=== PATIENT | female | born 1980 | race Caucasian/White ===

== ENCOUNTER 2016-10-15 22:15 | Emergency (ER) | payer MEDICARE, MEDICAID ==
[~2016-10-15] VITALS: Ht 152.4 cm; Wt 61.2 kg
[~2016-10-15 22:15] MED LIST: BENADRYL25 MG ORAL; CIPROFLOXACIN500 M2 ORAL; PLAQUENIL200 MG ORAL; PREDNISONE20 MG ORAL; PREDNISONE5 MG ORAL; RANITIDINE HCL150 MG ORAL; [UNRECOGNIZED DRUG - OTHER]
[2016-10-15] MEDS ORDERED: ZOLOFT25 MG ORAL (22:30)
[2016-10-15] MEDS ORDERED: Morphine Sulfate 4mg/ml Inj IVP ONE (23:00)
[2016-10-15 23:19] VITALS: BP 104/67
[2016-10-15 23:20] LABS: APPEARANCE,URINE CLEAR; KETONES,URINE NEGATIVE (NEGATIVE); LEUKOCYTE ESTERASE ,URINE NEGATIVE (NEGATIVE); NITRITE,URINE NEGATIVE (NEGATIVE); PH,URINE 6 (4.5-8.0); UROBILINOGEN,URINE NORMAL MG/DL (0.0-1.0)
[2016-10-15 23:25] LABS: BASOPHILS % (AUTO) 1.6 % (0.0-2.0); EOSINOPHILS % (AUTO) 1.8 % (0.0-3.0); LYMPHOCYTES % (AUTO) 31.1 % (20.0-45.0); MEAN CORPUSCULAR HEMOGLOBIN 31.1 PG (27.0-31.0); MEAN CORPUSCULAR VOLUME 92 FL (80-99); MEAN PLATELET VOLUME 6.8 FL (6.5-10.1); MONOCYTES % (AUTO) 8.6 % (1.0-10.0); NEUTROPHILS % (AUTO) 56.9 % (45.0-75.0); PLATELET COUNT 222 K/UL (150-450); RED BLOOD COUNT 4.72 M/UL (4.20-5.40); RED CELL DISTRIBUTION WIDTH 11.3 % (11.6-14.8); WHITE BLOOD COUNT 7.6 K/UL (4.8-10.8)
[2016-10-15 23:37] LABS: ALANINE AMINOTRANSFERASE 8 U/L (3-33); ALBUMIN/GLOBULIN RATIO 1.5 (1.0-2.7); ANION GAP 15 (5-15); ASPARTATE AMINO TRANSFERASE 16 U/L (5-40); CALCIUM 9.3 mg/dL (8.6-10.2); CARBON DIOXIDE 25 mEQ/L (20-30); CHLORIDE 97 mEQ/L (98-107); CREATININE 0.7 mg/dL (0.5-0.9); GLOMERULAR FILTRATION RATE > 60 mL/min (>60); HEMOLYSIS 5; LIPASE 35 U/L (< 60); POTASSIUM 3.9 mEQ/L (3.4-4.9); SODIUM 137 mEQ/L (135-145); TOTAL PROTEIN 7.5 g/dL (6.6-8.7)
[2016-10-15 23:48] LABS: PROTEIN,URINE NEGATIVE (NEGATIVE)
[2016-10-15 23:49] LABS: PROTHROMBIN TIME 10.2 SEC (9.30-11.50)
[2016-10-16 01:13] VITALS: BP 98/63
[2016-10-16] MEDS ORDERED: HYDROCODON-ACE1 EA15 ORAL (01:13)
--- NOTE | 2016-10-16 01:14 | Emergency Room Report ---
History of Present Illness General Chief Complaint: Abdominal Pain Source: Patient Present Illness HPI This is a 36-year-old female with a history of ovarian cyst. Her digital traffic coordinator thinks that she may have endometriosis. Patient presents with right lower quadrant/right pelvic pain for the last 3 days. Pain is sharp. Similar to previous episode. Pain is 8/10. [id number] medicine not helping. No fever or chills but no nausea no vomiting. No diarrhea. Denies any other complaint. Allergies: Coded Allergies: AMOXICILLIN TRIHYDRATE (Verified Allergy, Severe, rash, 05/12/13) ASPIRIN (Verified Allergy, Unknown, 10/15/16) PENICILLINS (Verified Allergy, Unknown, 10/15/16) Patient History Past Medical History: see triage record, old chart reviewed Past Surgical History: none Pertinent Family History: none Social History: Denies: smoking Last Menstrual Period: Oct 01 Now: No : 3 Para: 1 Immunizations: other Reviewed Nursing Documentation: PMH: Agreed, PSxH: Agreed Nursing Documentation-PMH Hx Cardiac Problems: Yes - Pericarditis Hx Hypertension: No - LUPUS Hx Asthma: Yes Hx Cancer: No Hx Gastrointestinal Problems: No Hx Cerebral Palsy: Yes - bells palsy Hx Peripheral Neuropathy: Yes Hx Weakness: Yes Hx Fatigue: Yes Hx Neurologic Surgery: No Hx Brain Shunt: No Review of Systems Eye: Denies: blurred vision, eye pain ENT: Denies: ear pain, nose congestion, throat swelling Respiratory: Denies: cough, shortness of breath Cardiovascular: Denies: chest pain, palpitations Gastrointestinal: Reports: abdominal pain, Denies: diarrhea, nausea, vomiting Musculoskeletal: Denies: back pain, joint pain Skin: Denies: rash Neurological: Denies: headache, numbness Endocrine: Denies: increased thirst, increased urine Hematologic/Lymphatic: Denies: easy bruising All Other Systems: negative except mentioned in HPI Physical Exam Vital Signs Date Time Temp Pulse Resp B/P Pulse Ox O2 Delivery O2 Flow Rate FiO2 10/15/16 22:24 98.1 80 18 120/75 99 Room Air vitals normal Sp02 EP Interpretation: reviewed, normal General Appearance: well appearing, no apparent distress, alert Head: normocephalic, atraumatic Eyes: bilateral eye EOMI, bilateral eye PERRL ENT: hearing grossly normal, normal pharynx Neck: full range of motion, supple, no meningismus Respiratory: chest non-tender, lungs clear, normal breath sounds Cardiovascular #1: regular rate, rhythm, no murmur Gastrointestinal: normal bowel sounds, no mass, no organomegaly, no bruit, non- distended, tenderness - Right lower quadrant Musculoskeletal: back normal, gait/station normal, normal range of motion Neurologic: alert, oriented x3 Psychiatric: mood/affect normal Skin: warm/dry Medical Decision Making Diagnostic Impression: Primary Impression: Ovarian cyst Qualified Codes: N83.201 - Unspecified ovarian cyst, right side Additional Impression: Abdominal pain Qualified Codes: R10.31 - Right lower quadrant pain ER Course Patient present with abdominal pain. This is probably secondary to ovarian cyst. Pain is well-controlled now. No evidence of appendicitis or torsion. We 'll discharge home. Lab Results Impression labs normal CT/MRI/US Diagnostic Results CT/MRI/US Diagnostic Results : Imaging Test Ordered: CT abdomen and pelvis Impression Read by radiologist. Appendix is upper limit of normal. No inflammatory changes. Right ovarian cyst. Last Vital Signs Date Time Temp Pulse Resp B/P Pulse Ox O2 Delivery O2 Flow Rate FiO2 10/15/16 23:37 98.1 10/15/16 23:19 74 12 104/67 100 Room Air Status: improved Disposition: HOME, SELF-CARE Condition: Stable Scripts Hydrocodone/Acetaminophen 5-325* (HYDROCODONE/ACETAMINOPHEN 5-325*) 1 Each Tablet 1 TAB ORAL Q6H Y for For Pain, #30 TAB 0 Refills Prov: ENMANUEL SAHNI M.D. 10/16/16 Referrals: NON PHYSICIAN (PCP) Patient Instructions: Abdominal Pain, Adult Additional Instructions: Followup with your DrMallorie in 2-3 days. Return if worse. ENMANUEL SAHNI M.D. Oct 16, 2016 01:14
[2016-10-16 01:18] VITALS: BP 98/63
--- NOTE | 2016-10-16 09:56 | Diagnostic Imaging Report ---
Indications: Abdominal pain Technique: Continuous helical CT imaging of the abdomen and pelvis was performed with automatic exposure control following administration of nonionic IV contrast only, on a Siemens sensation [address] scanner. Axial, coronal, sagittal images were reconstructed at 5 mm slice thickness. No oral contrast was administered per requesting physician's order, despite no contraindications listed in either submitted clinical data or tech note.. CTDI volume(s): 15 mGy Total DLP: 741 mGy-cm Findings: Comparison: 12/28/2015 Again, lack of oral contrast limits evaluation of gastrointestinal tract, nondilated throughout. Appendix unremarkable. No obvious mural thickening, adjacent stranding, extraluminal gas or fluid collections identified, aside from small amount of free fluid in the dependent portion of the pelvis. 2 adjacent cystic structures currently demonstrated within right adnexal region, 2 and 1.5 cm, respectively.. Liver, gallbladder, pancreas, spleen, adrenal glands, kidneys, unopacified ureters and urinary bladder, uterus, left adnexal region, vascular structures, retroperitoneum, mesentery, remainder visualized abdominopelvic anatomy unremarkable. Irregular pleural-based linear densities again noted in both lung bases. No focal skeletal abnormality identified. IMPRESSION: Small amount pelvic free fluid, nonspecific, may be secondary to recent ovarian cyst rupture, 2 of which are currently demonstrated in the right adnexal region. No other evidence of acute abdominopelvic disease, with limitation as described. Subtle but potentially significant abnormalities the gastrointestinal tract may be missed. Repeat CT scan with full oral and IV contrast preparation recommended for more complete evaluation, as clinically indicated Stable pulmonary bibasal subsegmental atelectasis versus scarring This correlates with [facility] preliminary report.
== END 2016-10-16 01:19 | disposition home or self-care (01) ==
LOC: EMR 22:52
DX: N83.201 Unspecified ovarian cyst, right side (principal); G51.0 Bell's palsy; M32.9 Systemic lupus erythematosus, unspecified; J45.909 Unspecified asthma, uncomplicated; G62.9 Polyneuropathy, unspecified; Z88.1 Allergy status to other antibiotic agents; Z88.6 Allergy status to analgesic agent; Z88.0 Allergy status to penicillin
CPT/HCPCS: 36415; 74177; 80053; 81003; 81025; 83690; 85025; 85610; 85730; 96360; 96361; 96374; 96375; 99284; J2270; J2405; Q9967

== ENCOUNTER 2017-04-23 11:31 | Emergency (ER) | payer MEDICARE, MEDICAID ==
[~2017-04-23] VITALS: Ht 162.6 cm; Wt 55.3 kg
[~2017-04-23 11:31] MED LIST changes: +HYDROCODON-ACE1 EA15 ORAL; +ZOLOFT25 MG ORAL
[2017-04-23 12:02] VITALS: BP 109/74
--- NOTE | 2017-04-23 12:26 | Emergency Room Report ---
History of Present Illness General Chief Complaint: Abdominal Pain Source: Patient (Chilo Germain) Present Illness HPI Patient is a 36-year-old female who presented after increased abdominal pain. The patient gradual onset of symptoms. Patient had acute increase in right lower quadrant pain. Patient had also noticed some mouth sores. Patient had prior history of lupus. Patient had been taking Plaquenil as well as prednisone. The patient noticed severe pain which did not radiate. She had been not having any diarrhea or bloody stools. Patient reported having some irregular periods (Chilo Germain) Allergies: Coded Allergies: AMOXICILLIN TRIHYDRATE (Verified Allergy, Severe, rash, 05/12/13) ASPIRIN (Verified Allergy, Unknown, 10/15/16) PENICILLINS (Verified Allergy, Unknown, 10/15/16) Patient History Past Medical History: see triage record Now: No Reviewed Nursing Documentation: PMH: Agreed, PSxH: Agreed (Chilo Germain) Nursing Documentation-PMH Hx Cardiac Problems: Yes - Pericarditis Hx Hypertension: No - LUPUS Hx Asthma: Yes Hx Cancer: No Hx Gastrointestinal Problems: No Hx Cerebral Palsy: Yes - bells palsy Hx Peripheral Neuropathy: Yes Hx Weakness: Yes Hx Fatigue: Yes Hx Neurologic Surgery: No Hx Brain Shunt: No (Chilo Germain) Review of Systems All Other Systems: negative except mentioned in HPI (Chilo Germain) Physical Exam Vital Signs Date Time Temp Pulse Resp B/P Pulse Ox O2 Delivery O2 Flow Rate FiO2 04/23/17 11:52 98.1 78 16 109/74 98 Room Air Sp02 EP Interpretation: reviewed, normal General Appearance: normal inspection, well appearing, no apparent distress, alert, GCS 15, non-toxic Head: atraumatic ENT: normal ENT inspection, hearing grossly normal, normal voice Neck: normal inspection, full range of motion, supple, no bony tend Respiratory: normal inspection, lungs clear, normal breath sounds, no respiratory distress, no retraction, no wheezing Cardiovascular #1: regular rate, rhythm, no edema Gastrointestinal: normal inspection, normal bowel sounds, non tender, soft, no guarding, no hernia Genitourinary: no CVA tenderness Musculoskeletal: normal inspection, back normal, normal range of motion Neurologic: normal inspection, alert, oriented x3, responsive, carpet weaver III-XII nml as tested, speech normal Psychiatric: normal inspection, judgement/insight normal, mood/affect normal Skin: normal inspection, normal color, no rash (Chilo Germain) Medical Decision Making Diagnostic Impression: Primary Impression: Hemorrhagic cyst Additional Impression: Abdominal pain ER Course Patient presented for abdominal pain. Differential diagnoses included ischemic bowel, appendicitis, perforated viscus, abdominal aortic aneurysm, inferior myocardial infarction, viral gastroenteritis Because of complexity of patient's case laboratory testing and imaging studies were ordered.Patient was given IV fluids. CT of abdomen and pelvis was ordered with contrast due to patient's pain.The patient was noted to have some oral lesions consistent with some possible enteritis. Patient will likely need a GI followup for further evaluation and colonoscopy. Lab for studies were unremarkable. Patient was given IV morphine as well as Zofran. Patient was endorsed to Dr. Wilkins pending CT imaging. Labs Test 04/23/17 12:18 04/23/17 12:30 Urine Color Yellow Urine Appearance Slightly cloudy Urine pH 6 (4.5-8.0) Urine Specific [place] 1.020 (1.005-1.035) Urine Protein Negative (NEGATIVE) Urine Glucose (UA) Negative (NEGATIVE) Urine Ketones Negative (NEGATIVE) Urine Occult Blood Negative (NEGATIVE) Urine Nitrite Negative (NEGATIVE) Urine Bilirubin Negative (NEGATIVE) Urine Urobilinogen Normal MG/DL (0.0-1.0) Urine Leukocyte Esterase 1+ (NEGATIVE) Urine RBC 0-2 /HPF (0 - 2) Urine WBC 2-4 /HPF (0 - 2) Urine Squamous Epithelial Cells Moderate /LPF (NONE/OCC) Urine Bacteria Few /HPF (NONE) Urine HCG, Qualitative Negative White Blood Count 4.6 K/UL (4.8-10.8) Red Blood Count 4.39 M/UL (4.20-5.40) Hemoglobin 13.5 G/DL (12.0-16.0) Hematocrit 40.2 % (37.0-47.0) Mean Corpuscular Volume 92 FL (80-99) Mean Corpuscular Hemoglobin 30.7 PG (27.0-31.0) Mean Corpuscular Hemoglobin Concent 33.5 G/DL (32.0-36.0) Red Cell Distribution Width 11.4 % (11.6-14.8) Platelet Count 230 K/UL (150-450) Mean Platelet Volume 6.8 FL (6.5-10.1) Neutrophils (%) (Auto) 53.5 % (45.0-75.0) Lymphocytes (%) (Auto) 31.4 % (20.0-45.0) Monocytes (%) (Auto) 11.5 % (1.0-10.0) Eosinophils (%) (Auto) 2.6 % (0.0-3.0) Basophils (%) (Auto) 1.0 % (0.0-2.0) Prothrombin Time 10.0 SEC (9.30-11.50) Prothromb Time International Ratio 1.0 (0.9-1.1) Activated Partial Thromboplast Time 24 SEC (23-33) Sodium Level 140 mEQ/L (135-145) Potassium Level 4.1 mEQ/L (3.4-4.9) Chloride Level 103 mEQ/L (98-107) Carbon Dioxide Level 28 mEQ/L (20-30) Anion Gap 9 (5-15) Blood Urea Nitrogen 8 mg/dL (7-23) Creatinine 0.6 mg/dL (0.5-0.9) Estimat Glomerular Filtration Rate > 60 mL/min (>60) Glucose Level 86 mg/dL (74-106) Calcium Level 9.2 mg/dL (8.6-10.2) Total Bilirubin 0.3 mg/dL (0.0-1.2) Aspartate Amino Transf (AST/SGOT) 17 U/L (5-40) Alanine Aminotransferase (ALT/SGPT) 10 U/L (3-33) Alkaline Phosphatase 91 U/L (35-104) Total Protein 7.0 g/dL (6.6-8.7) Albumin 4.2 g/dL (3.5-5.2) Globulin 2.8 g/dL Albumin/Globulin Ratio 1.5 (1.0-2.7) Lipase 27 U/L (< 60) Urine Opiates Screen Negative (NEGATIVE) Urine Barbiturates Screen Negative (NEGATIVE) Phencyclidine (PCP) Screen Negative (NEGATIVE) Urine Amphetamines Screen Negative (NEGATIVE) Urine Benzodiazepines Screen Negative (NEGATIVE) Urine Cocaine Screen Negative (NEGATIVE) Urine Marijuana (THC) Screen Negative (NEGATIVE) (Chilo Germain) ER Course Please refer to the initial note the history examined the presentation At this time patient has done better regarding the pain CAT scan imaging does reveal questionable cyst and fibroids However the appendix was normal Given this ultrasound was obtained for evaluation of torsion and further evaluation of the mass it appears to be possible hemorrhagic cystitis of the ovaries Patient on reevaluation is doing well Review of the [facility] system reveals multiple prescriptions of tramadol Patient was provided medication for breakthrough pain given the imaging studies And requires close outpatient followup Labs Test 04/23/17 12:18 04/23/17 12:30 Urine Color Yellow Urine Appearance Slightly cloudy Urine pH 6 (4.5-8.0) Urine Specific [place] 1.020 (1.005-1.035) Urine Protein Negative (NEGATIVE) Urine Glucose (UA) Negative (NEGATIVE) Urine Ketones Negative (NEGATIVE) Urine Occult Blood Negative (NEGATIVE) Urine Nitrite Negative (NEGATIVE) Urine Bilirubin Negative (NEGATIVE) Urine Urobilinogen Normal MG/DL (0.0-1.0) Urine Leukocyte Esterase 1+ (NEGATIVE) Urine RBC 0-2 /HPF (0 - 2) Urine WBC 2-4 /HPF (0 - 2) Urine Squamous Epithelial Cells Moderate /LPF (NONE/OCC) Urine Bacteria Few /HPF (NONE) Urine HCG, Qualitative Negative White Blood Count 4.6 K/UL (4.8-10.8) Red Blood Count 4.39 M/UL (4.20-5.40) Hemoglobin 13.5 G/DL (12.0-16.0) Hematocrit 40.2 % (37.0-47.0) Mean Corpuscular Volume 92 FL (80-99) Mean Corpuscular Hemoglobin 30.7 PG (27.0-31.0) Mean Corpuscular Hemoglobin Concent 33.5 G/DL (32.0-36.0) Red Cell Distribution Width 11.4 % (11.6-14.8) Platelet Count 230 K/UL (150-450) Mean Platelet Volume 6.8 FL (6.5-10.1) Neutrophils (%) (Auto) 53.5 % (45.0-75.0) Lymphocytes (%) (Auto) 31.4 % (20.0-45.0) Monocytes (%) (Auto) 11.5 % (1.0-10.0) Eosinophils (%) (Auto) 2.6 % (0.0-3.0) Basophils (%) (Auto) 1.0 % (0.0-2.0) Prothrombin Time 10.0 SEC (9.30-11.50) Prothromb Time International Ratio 1.0 (0.9-1.1) Activated Partial Thromboplast Time 24 SEC (23-33) Sodium Level 140 mEQ/L (135-145) Potassium Level 4.1 mEQ/L (3.4-4.9) Chloride Level 103 mEQ/L (98-107) Carbon Dioxide Level 28 mEQ/L (20-30) Anion Gap 9 (5-15) Blood Urea Nitrogen 8 mg/dL (7-23) Creatinine 0.6 mg/dL (0.5-0.9) Estimat Glomerular Filtration Rate > 60 mL/min (>60) Glucose Level 86 mg/dL (74-106) Calcium Level 9.2 mg/dL (8.6-10.2) Total Bilirubin 0.3 mg/dL (0.0-1.2) Aspartate Amino Transf (AST/SGOT) 17 U/L (5-40) Alanine Aminotransferase (ALT/SGPT) 10 U/L (3-33) Alkaline Phosphatase 91 U/L (35-104) Total Protein 7.0 g/dL (6.6-8.7) Albumin 4.2 g/dL (3.5-5.2) Globulin 2.8 g/dL Albumin/Globulin Ratio 1.5 (1.0-2.7) Lipase 27 U/L (< 60) Urine Opiates Screen Negative (NEGATIVE) Urine Barbiturates Screen Negative (NEGATIVE) Phencyclidine (PCP) Screen Negative (NEGATIVE) Urine Amphetamines Screen Negative (NEGATIVE) Urine Benzodiazepines Screen Negative (NEGATIVE) Urine Cocaine Screen Negative (NEGATIVE) Urine Marijuana (THC) Screen Negative (NEGATIVE) (ANDREW WILKINS D.O.) CT/MRI/US Diagnostic Results CT/MRI/US Diagnostic Results : Impression CT abdomen pelvis:IMPRESSION: Unremarkable appendix--no evidence of acute appendicitis Increased colonic feces suggests constipation Increase in size of right adnexal mass. Diagnostic possibilities include hemorrhagic physiologic ovarian cyst, hydrosalpinx, tubo-ovarian abscess, endometrioma, less likely ovarian neoplasm. Persistent heterogeneity of the uterine myometrium, nonspecific. Fibroids or adenomyosis not excludable Cervical nabothian cysts Pulmonary bibasal subsegmental atelectasis pelvic ultrasound:IMPRESSION: Complex mass right ovary, most likely hemorrhagic physiologic cyst. No evidence of torsion. Uterus, left ovary unremarkable (ANDREW WILKINS D.O.) Last Vital Signs Date Time Temp Pulse Resp B/P Pulse Ox O2 Delivery O2 Flow Rate FiO2 04/23/17 12:02 98.1 16 109/74 98 Room Air 04/23/17 11:52 78 Status: improved (Chilo Germain) Status: improved (ANDREW WILKINS D.O.) Disposition: HOME, SELF-CARE Condition: Improved Scripts Acetaminophen With Codeine (T#3) (TYLENOL #3 TAB*) Y Tab 1 TAB ORAL Q8H Y for For Pain, #10 TAB Prov: ANDREW WILKINS D.O. 04/23/17 Referrals: NON PHYSICIAN (PCP) Additional Instructions: Patient is provided with the discharge instructions notified to follow up with primary doctor in the next 2-3 days otherwise return to the er with any worsening symptoms. Please note that this report is being documented using DRAGON technology. This can lead to erroneous entry secondary to incorrect interpretation by the dictating instrument. Chilo Germain Apr 23, 2017 12:26 ANDREW WILKINS D.O. Apr 23, 2017 16:50
[2017-04-23 12:41] LABS: EOSINOPHILS % (AUTO) 2.6 % (0.0-3.0); LYMPHOCYTES % (AUTO) 31.4 % (20.0-45.0); MEAN CORPUSCULAR HEMOGLOBIN 30.7 PG (27.0-31.0); MEAN CORPUSCULAR HGB CONC 33.5 G/DL (32.0-36.0); MEAN CORPUSCULAR VOLUME 92 FL (80-99); MEAN PLATELET VOLUME 6.8 FL (6.5-10.1); MONOCYTES % (AUTO) 11.5 % (1.0-10.0); NEUTROPHILS % (AUTO) 53.5 % (45.0-75.0); PLATELET COUNT 230 K/UL (150-450); RED BLOOD COUNT 4.39 M/UL (4.20-5.40); RED CELL DISTRIBUTION WIDTH 11.4 % (11.6-14.8); WHITE BLOOD COUNT 4.6 K/UL (4.8-10.8)
[2017-04-23] MEDS ORDERED: Morphine Sulfate 4mg/ml Inj IVP ONE ×2 (12:45→15:00)
[2017-04-23 12:46] LABS: APPEARANCE,URINE SLIGHTLY CLOUDY; KETONES,URINE NEGATIVE (NEGATIVE); LEUKOCYTE ESTERASE ,URINE 1+ (NEGATIVE); NITRITE,URINE NEGATIVE (NEGATIVE); PH,URINE 6 (4.5-8.0); PROTEIN,URINE NEGATIVE (NEGATIVE); UROBILINOGEN,URINE NORMAL MG/DL (0.0-1.0)
[2017-04-23 12:55] LABS: ALANINE AMINOTRANSFERASE 10 U/L (3-33); ALBUMIN/GLOBULIN RATIO 1.5 (1.0-2.7); ANION GAP 9 (5-15); ASPARTATE AMINO TRANSFERASE 17 U/L (5-40); CALCIUM 9.2 mg/dL (8.6-10.2); CARBON DIOXIDE 28 mEQ/L (20-30); CHLORIDE 103 mEQ/L (98-107); CREATININE 0.6 mg/dL (0.5-0.9); GLOMERULAR FILTRATION RATE > 60 mL/min (>60); HEMOLYSIS 7; LIPASE 27 U/L (< 60); POTASSIUM 4.1 mEQ/L (3.4-4.9); SODIUM 140 mEQ/L (135-145)
[2017-04-23 13:33] LABS: BACTERIA,URINE FEW /HPF; RBC,URINE 0-2 /HPF (0 - 2); SQUAMOUS EPITHELIAL CELL,UR MODERATE /LPF (NONE/OCC)
--- NOTE | 2017-04-23 15:03 | Diagnostic Imaging Report ---
Indications: Acute increase in right lower quadrant abdominal pain, irregular menses, lupus Technique: Continuous helical CT imaging of the abdomen and pelvis was performed with automatic exposure control following administration of oral and intravenous nonionic iodine contrast, on a Siemens sensation [address] scanner. Axial, coronal, and sagittal images were reconstructed at 5 mm slice thickness. CTDI volume(s): 14 mGy Total DLP: 637 mGy-cm Findings: Comparison: 10/16/16 Oral contrast has passed throughout the gastrointestinal tract to the proximal ascending colon. Colon variably distended and fecal filled, cecum most prominently so. Remainder of tract nondilated. Appendix unremarkable. No obvious mural thickening, adjacent stranding, associated extraluminal gas or fluid collections. Cystic mass with increased attenuation dependently in the right adnexal region has increased in size, now 5.3 x 3.3 x 4.3 cm. Uterine myometrium remains heterogeneous. 1 cm cyst again noted in cervix. Liver, gallbladder, pancreas, spleen, adrenal glands, kidneys, unopacified ureters and urinary bladder, left adnexal region, vascular structures, retroperitoneum, mesentery, remainder visualized abdominopelvic anatomy unremarkable. Small irregular pleural-based linear densities in both lung bases. No focal skeletal abnormality identified. IMPRESSION: Unremarkable appendix--no evidence of acute appendicitis Increased colonic feces suggests constipation Increase in size of right adnexal mass. Diagnostic possibilities include hemorrhagic physiologic ovarian cyst, hydrosalpinx, tubo-ovarian abscess, endometrioma, less likely ovarian neoplasm. Persistent heterogeneity of the uterine myometrium, nonspecific. Fibroids or adenomyosis not excludable Cervical nabothian cysts Pulmonary bibasal subsegmental atelectasis
[2017-04-23 16:00] VITALS: BP 109/74
--- NOTE | 2017-04-23 16:27 | Diagnostic Imaging Report ---
Indications: Right-sided pelvic pain, LMP 04/14/17 Technique: Transabdominal and transvaginal real-time grayscale and duplex Doppler imaging of the pelvis was performed. Findings: Comparison: CT abdomen pelvis 04/23/17 Retroverted uterus measures 7.8 x 5.7 x 4cm. It demonstrates normal contour and myometrial echotexture without focal abnormality. The endometrial complex measures 4 mm in diameter. It is unremarkable in appearance without obvious focal abnormality. 14 mm cyst in cervix. No free fluid is present in the cul-de-sac. Complex mass measuring 5.2 x 2.8 x 4.3 cm occupies the right adnexal region. It appears contrast of approximately 5 cm elongated mass with heterogeneous internal echoes and increased through transmission, partially surrounded by a rim of vascular, likely ovarian tissue. Separate ovary not identified. Left ovary measures 4 x 2.6 x 1.9 cm. It contains several small simple cystic structures up to 8 mm diameter.. Duplex Doppler imaging demonstrates normal blood flow. No extra-ovarian abnormality is seen. IMPRESSION: Complex mass right ovary, most likely hemorrhagic physiologic cyst. No evidence of torsion. Uterus, left ovary unremarkable
[2017-04-23] MEDS ORDERED: ACETAMINOPHEN-1 EAC1 ORAL (16:45)
[2017-04-23 16:52] VITALS: BP 113/78
== END 2017-04-23 17:24 | disposition home or self-care (01) ==
LOC: EMR 12:02
DX: N83.201 Unspecified ovarian cyst, right side (principal); N88.8 Other specified noninflammatory disorders of cervix uteri; I10 Essential (primary) hypertension; M32.9 Systemic lupus erythematosus, unspecified; J45.909 Unspecified asthma, uncomplicated
CPT/HCPCS: 36415; 74177; 76830; 76856; 80053; 80300; 81003; 81025; 83690; 85025; 85610; 85730; 96361; 96374; 96375; 99284; J2270; J2405; Q9967

== ENCOUNTER 2017-05-30 12:47 | Emergency (ER) | payer MEDICARE, MEDICAID ==
[~2017-05-30] VITALS: Ht 152.4 cm; Wt 54.4 kg
[~2017-05-30 12:47] MED LIST changes: +ACETAMINOPHEN-1 EAC1 ORAL
[2017-05-30 13:02] VITALS: BP 111/72
[2017-05-30] MEDS ORDERED: Norco 7.5mg/325mg tab ORAL ONE (13:45)
[2017-05-30 14:02] LABS: APPEARANCE,URINE CLEAR; KETONES,URINE NEGATIVE (NEGATIVE); LEUKOCYTE ESTERASE ,URINE NEGATIVE (NEGATIVE); NITRITE,URINE NEGATIVE (NEGATIVE); PH,URINE 7 (4.5-8.0); PROTEIN,URINE NEGATIVE (NEGATIVE); UROBILINOGEN,URINE NORMAL MG/DL (0.0-1.0)
--- NOTE | 2017-05-30 14:24 | Emergency Room Report ---
History of Present Illness General Chief Complaint: Pain Present Illness HPI 36-year-old female presents to the ED c/o of Right sided adnexal pain x 1 month , and being out of her pain medication. Patient denies changes in character of her pain since previously been diagnosed with ovarian cyst. Pt. reports that she has Surgery scheduled next Saturday for removal of ovarian cyst. Pt. states she has been having nausea x 1 month with decreased appetite due to pain. pt. denies vomiting. denies . She reports increase in urinary frequency primarily at night x3 days. Patient denies fevers, chills, hematuria, dysuria. Patient denies vaginal discharge, vaginal bleeding, constipation or diarrhea. Denies CP, Palpitations, LOC, AMS, dizziness, Changes in Vision, Sensation, paresthesias, or a sudden severe headache. Allergies: Coded Allergies: AMOXICILLIN TRIHYDRATE (Verified Allergy, Severe, rash, 05/12/13) ASPIRIN (Verified Allergy, Severe, Shortness of Breath, 05/30/17) RASH PENICILLINS (Verified Allergy, Severe, Shortness of Breath, 05/30/17) Patient History Past Medical History: see triage record Past Surgical History: none Pertinent Family History: none Last Menstrual Period: 05/05/17 Now: No : 3 Para: 2 Reviewed Nursing Documentation: PMH: Agreed, PSxH: Agreed Nursing Documentation-PMH Hx Cardiac Problems: Yes - Pericarditis Hx Hypertension: No - LUPUS Hx Asthma: Yes Hx Cancer: No Hx Gastrointestinal Problems: No Hx Cerebral Palsy: Yes - bells palsy Hx Peripheral Neuropathy: Yes Hx Weakness: Yes Hx Fatigue: Yes Hx Neurologic Surgery: No Hx Brain Shunt: No Review of Systems All Other Systems: negative except mentioned in HPI Physical Exam Vital Signs Date Time Temp Pulse Resp B/P (MAP) Pulse Ox O2 Delivery O2 Flow Rate FiO2 05/30/17 12:53 98.1 78 18 111/72 100 Room Air Medical Decision Making PA Attestation Dr. Gong is my supervising Physician whom patient management has been discussed with. Diagnostic Impression: Primary Impression: Medication refill Additional Impressions: Urinary frequency Ovarian cyst Qualified Codes: N83.209 - Unspecified ovarian cyst, unspecified side ER Course 36-year-old female presents to the ED c/o of Right sided adnexal pain x 1 month , and being out of her pain medication. Patient denies changes in character of her pain since previously been diagnosed with ovarian cyst. Pt. reports that she has Surgery scheduled next Saturday for removal of ovarian cyst. Pt. states she has been having nausea x 1 month with decreased appetite due to pain. pt. denies vomiting. denies . She reports increase in urinary frequency primarily at night x3 days. Patient denies fevers, chills, hematuria, dysuria. Patient denies vaginal discharge, vaginal bleeding, constipation or diarrhea. Denies CP, Palpitations, LOC, AMS, dizziness, Changes in Vision, Sensation, paresthesias, or a sudden severe headache. Ddx considered but are not limited to Diverticulitis, acute appy, ovarian torsion, ectopic , PID tubo-ovarian abscess, ovarian cyst, UTI, non- compliance with medications, just to name a few. Vital signs: are WNL, pt. is afebrile H&PE are most consistent with need for medication refill, hx of ovarian cysts, possible UTI with new onset nocturia x 3 days. Pt. has Surgery scheduled next Saturday for removal of ovarian cyst. Given pt. relatively benign PE, and noted to be NAD while waiting prior to physical exam I do not suspect Torsion or further complication at this time. ORDERS: -UA: unremarkable -URINE HCG:Negative ED INTERVENTIONS: - [place] PO d/w pt. that she will need to d/w her primary prescribing physician regarding additional prescriptions for strong pain medications while awaiting her surgery. I also reviewed this pt. CURES report which shows monthly fills for TRAMADOL in large quantities 120 count monthly , and a recent fill on 05/15. I believe this pt. should have enough medication to adequately control her pain if taken as prescribed. Pt. should not be out of her medication at this time. Also d/w pt. controlled substance prescribing safety, and that one primary prescriber is recommended. DISCHARGE: At this time pt. is stable for d/c to home. Will provide printed patient care instructions, and any necessary prescriptions. Care plan and follow up instructions have been discussed with the patient prior to discharge. Labs Test 05/30/17 13:50 Urine Color Pale yellow Urine Appearance Clear Urine pH 7 (4.5-8.0) Urine Specific [place] 1.010 (1.005-1.035) Urine Protein Negative (NEGATIVE) Urine Glucose (UA) Negative (NEGATIVE) Urine Ketones Negative (NEGATIVE) Urine Occult Blood Negative (NEGATIVE) Urine Nitrite Negative (NEGATIVE) Urine Bilirubin Negative (NEGATIVE) Urine Urobilinogen Normal MG/DL (0.0-1.0) Urine Leukocyte Esterase Negative (NEGATIVE) Urine HCG, Qualitative Negative Last Vital Signs Date Time Temp Pulse Resp B/P (MAP) Pulse Ox O2 Delivery O2 Flow Rate FiO2 05/30/17 13:02 98.1 18 111/72 100 Room Air 05/30/17 12:53 78 Disposition: HOME, SELF-CARE Condition: Stable Scripts Ondansetron Odt* (ZOFRAN ODT*) 4 Mg Tab.rapdis 4 MG ORAL Q6H Y for Nausea & Vomiting, #15 TAB Prov: Tyesha Lacy 05/30/17 Acetaminophen* (TYLENOL EXTRA STRENGTH*) 500 Mg Tablet 500 MG ORAL Q6H, #30 TAB 0 Refills Prov: Tyesha Lacy 05/30/17 Referrals: NON PHYSICIAN (PCP) Patient Instructions: Ovarian Cyst Additional Instructions: Take medications as directed. Follow up with a Primary Care Provider For Pain medication management of your previously diagnosed condition: Ovarian Cyst. --Please review list of primary care clinics, if you do not already have a primary care provider Return sooner to ED if new symptoms occur, or current symptoms become worse. - Please note that this Emergency Department Report was dictated using [employer] technology software, occasionally this can lead to erroneous entry secondary to interpretation by the dictation equipment. Tyesha Lacy May 30, 2017 14:24
[2017-05-30] MEDS ORDERED: ZOFRAN ODT4 MG ORAL (14:25)
[2017-05-30] MEDS ORDERED: TYLENOL EXTRA500 MG ORAL (14:25)
[2017-05-30 14:35] VITALS: BP 110/70
== END 2017-05-30 14:33 | disposition home or self-care (01) ==
LOC: EMR 13:30
DX: R10.2 Pelvic and perineal pain (principal); R35.0 Frequency of micturition; N83.209 Unspecified ovarian cyst, unspecified side; Z76.0 Encounter for issue of repeat prescription; M32.9 Systemic lupus erythematosus, unspecified; J45.909 Unspecified asthma, uncomplicated; Z88.0 Allergy status to penicillin
CPT/HCPCS: 81003; 81025; 99284

== ENCOUNTER 2017-06-23 17:14 | Emergency (ER) | payer MEDICARE, MEDICAID ==
[~2017-06-23] VITALS: Ht 152.4 cm; Wt 53.1 kg
[~2017-06-23 17:14] MED LIST changes: +TYLENOL EXTRA500 MG ORAL; +ZOFRAN ODT4 MG ORAL
[2017-06-23] MEDS ORDERED: FOLIC ACID1 MG ORAL (17:23)
[2017-06-23 17:30] VITALS: BP 100/56
[2017-06-23] MEDS ORDERED: Morphine Sulfate 4mg/ml Inj IVP ONE ×2 (17:45→19:30)
--- NOTE | 2017-06-23 17:49 | Emergency Room Report ---
History of Present Illness General Chief Complaint: Abdominal Pain Source: Patient Present Illness HPI 37-year-old female presents to the emergency department complaining of 10 out of 10 in severity progressive pain in the right adnexal area. Patient states she had laparoscopic surgical removal ovarian cysts bilaterally in addition to a fibroid removal. Patient states she was also diagnosed with endometriosis by her FISHERY BIOLOGIST. Patient states surgery was 20 days ago denies fever she reports chills denies erythema or discharge from the surgical sites. Patient states that her pain is in the right groin area she reports nausea and vomiting she denies constipation or diarrhea denies vaginal discharge. Patient denies . Patient states that she saw her FISHERY BIOLOGIST on Saturday and he prescribed her [place] however she states this medication is not helping and her pain has progressed made her come to the emergency department. Denies CP, Palpitations, LOC, AMS, dizziness, Changes in Vision, Sensation, paresthesias, or a sudden severe headache. Allergies: Coded Allergies: AMOXICILLIN TRIHYDRATE (Verified Allergy, Severe, rash, 05/12/13) ASPIRIN (Verified Allergy, Severe, Shortness of Breath, 05/30/17) RASH PENICILLINS (Verified Allergy, Severe, Shortness of Breath, 05/30/17) Patient History Past Medical History: see triage record Past Surgical History: none Pertinent Family History: none Now: No Immunizations: UTD Reviewed Nursing Documentation: PMH: Agreed, PSxH: Agreed Nursing Documentation-PMH Past Medical History: No History, Except For Hx Cardiac Problems: Yes - Pericarditis Hx Hypertension: No - LUPUS Hx Asthma: Yes Hx Cancer: No Hx Gastrointestinal Problems: No Hx Cerebral Palsy: Yes - bells palsy Hx Peripheral Neuropathy: Yes Hx Weakness: Yes Hx Fatigue: Yes Hx Neurologic Surgery: No Hx Brain Shunt: No Review of Systems All Other Systems: negative except mentioned in HPI Physical Exam Vital Signs Date Time Temp Pulse Resp B/P (MAP) Pulse Ox O2 Delivery O2 Flow Rate FiO2 06/23/17 17:17 97.9 97 16 100/56 96 Room Air Sp02 EP Interpretation: reviewed, normal General Appearance: no apparent distress, alert, GCS 15, non-toxic Head: normocephalic, atraumatic Eyes: bilateral eye normal inspection, bilateral eye PERRL ENT: hearing grossly normal, normal pharynx, no angioedema, normal voice Neck: full range of motion, supple/symm/no masses Respiratory: lungs clear, normal breath sounds, speaking full sentences Cardiovascular #1: regular rate, rhythm Gastrointestinal: normal bowel sounds, non tender, soft, no guarding, no rebound Rectal: deferred Genitourinary: normal inspection, no CVA tenderness, other - moderate right adnexal TTP Musculoskeletal: back normal, gait/station normal, normal range of motion, non- tender Neurologic: alert, oriented x3, responsive, motor strength/tone normal, sensory intact, speech normal Psychiatric: judgement/insight normal, memory normal, mood/affect normal Skin: normal color, no rash, warm/dry, well hydrated, other - bilateral adnexal surgical incisions and umbillical wound, no infeciton noted. tenderness not about the surgical incisions. Lymphatic: no adenopathy Medical Decision Making PA Attestation Dr. Gong is my supervising Physician whom patient management has been discussed with. Diagnostic Impression: Primary Impression: Adnexal pain Additional Impression: Pelvic mass in female ER Course 37-year-old female presents to the emergency department complaining of 10 / 10 in severity progressive pain in the right adnexal area. Patient states she had laparoscopic surgical removal ovarian cysts bilaterally in addition to a fibroid removal. Patient states she was also diagnosed with endometriosis by her FISHERY BIOLOGIST. Patient states surgery was 20 days ago denies fever she reports chills denies erythema or discharge from the surgical sites. Patient states that her pain is in the right groin area she reports nausea and vomiting blood in the vomit or stool. denies black tarry stools. she denies constipation, diarrhea, or vaginal discharge. Patient denies . Patient states that she saw her FISHERY BIOLOGIST on Saturday and he prescribed her [place] however she states this medication is not helping and her pain has progressed made her come to the emergency department. Denies CP, Palpitations, LOC, AMS, dizziness, Changes in Vision, Sensation, paresthesias, or a sudden severe headache. Ddx considered but are not limited to Diverticulitis, acute appy, ovarian torsion, ectopic , PID tubo-ovarian abscess, ovarian cyst. surgical site infection just to name a few Vital signs: are WNL, pt. is afebrile H&PE are most consistent with possible ovarian cyst, however due to presentation will r/o torsion, ectopic, and stone. ORDERS: -CBC, CMP, LIPASE: results are unremarkable and WNL. -UA: few bacteria in the presence of many squamous epithelial cells most likely not a clean catch/ contamination, no appreciable elevation in inflammatory markers, negative nitrite -URINE HCG: negative -Pelvic US Complete: "At least 3 complex mass lesions in the pelvis, measuring between 3 to 5 cm.Small amount of fluid in the pelvis. Left ovary not visualized".--Per official radiology report. ED INTERVENTIONS: - 4mg Morphine IV - Zofran IV 4mg DISCHARGE: At this time pt. is stable for d/c to home. Will provide printed patient care instructions, and any necessary prescriptions. Care plan and follow up instructions have been discussed with the patient prior to discharge. Labs Test 06/23/17 17:30 06/23/17 18:00 White Blood Count 8.7 K/UL (4.8-10.8) Red Blood Count 4.21 M/UL (4.20-5.40) Hemoglobin 12.4 G/DL (12.0-16.0) Hematocrit 38.7 % (37.0-47.0) Mean Corpuscular Volume 92 FL (80-99) Mean Corpuscular Hemoglobin 29.5 PG (27.0-31.0) Mean Corpuscular Hemoglobin Concent 32.0 G/DL (32.0-36.0) Red Cell Distribution Width 11.1 % (11.6-14.8) Platelet Count 231 K/UL (150-450) Mean Platelet Volume 6.3 FL (6.5-10.1) Neutrophils (%) (Auto) 76.0 % (45.0-75.0) Lymphocytes (%) (Auto) 17.0 % (20.0-45.0) Monocytes (%) (Auto) 6.2 % (1.0-10.0) Eosinophils (%) (Auto) 0.3 % (0.0-3.0) Basophils (%) (Auto) 0.6 % (0.0-2.0) Sodium Level 139 MMOL/L (136-145) Potassium Level 3.5 MMOL/L (3.5-5.1) Chloride Level 104 MMOL/L (98-107) Carbon Dioxide Level 28 MMOL/L (21-32) Anion Gap 7 mmol/L (5-15) Blood Urea Nitrogen 12 mg/dL (7-18) Creatinine 0.6 MG/DL (0.55-1.30) Estimat Glomerular Filtration Rate > 60 mL/min (>60) Glucose Level 89 MG/DL (74-106) Calcium Level 8.9 MG/DL (8.5-10.1) Total Bilirubin 0.4 MG/DL (0.2-1.0) Aspartate Amino Transf (AST/SGOT) 38 U/L (15-37) Alanine Aminotransferase (ALT/SGPT) 24 U/L (12-78) Alkaline Phosphatase 95 U/L (46-116) Total Protein 7.9 G/DL (6.4-8.2) Albumin 3.3 G/DL (3.4-5.0) Globulin 4.6 g/dL Albumin/Globulin Ratio 0.7 (1.0-2.7) Lipase 80 U/L (73-393) Urine Color [place] Urine Appearance Slightly cloudy Urine pH 6 (4.5-8.0) Urine Specific [place] 1.020 (1.005-1.035) Urine Protein 1+ (NEGATIVE) Urine Glucose (UA) Negative (NEGATIVE) Urine Ketones Negative (NEGATIVE) Urine Occult Blood Negative (NEGATIVE) Urine Nitrite Negative (NEGATIVE) Urine Bilirubin 1+ (NEGATIVE) Urine Ictotest Positive Urine Urobilinogen 8 MG/DL (0.0-1.0) Urine Leukocyte Esterase 1+ (NEGATIVE) Urine RBC 0-2 /HPF (0 - 2) Urine WBC 2-4 /HPF (0 - 2) Urine Squamous Epithelial Cells Many /LPF (NONE/OCC) Urine Bacteria Few /HPF (NONE) Urine Mucus Moderate /LPF (NONE/OCC) Urine HCG, Qualitative Negative Last Vital Signs Date Time Temp Pulse Resp B/P (MAP) Pulse Ox O2 Delivery O2 Flow Rate FiO2 06/23/17 17:17 97.9 97 16 100/56 96 Room Air Disposition: HOME, SELF-CARE Condition: Stable Scripts Ondansetron Odt* (ZOFRAN ODT*) 4 Mg Tab.rapdis 4 MG ORAL Q6H Y for Nausea & Vomiting, #10 TAB Prov: Tyesha Lacy.Rachana 06/23/17 Patient Instructions: Pelvic Mass, Pelvic Pain, Female Additional Instructions: Take medications as directed. Follow up with a OBGYN in 3-5 days, even if your symptoms have resolved. Return sooner to ED if new symptoms occur, or current symptoms become worse. - Please note that this Emergency Department Report was dictated using [employer] claims specialist technology software, occasionally this can lead to erroneous entry secondary to interpretation by the dictation equipment. Tyesha Lacy Jun 23, 2017 17:49
[2017-06-23 18:10] LABS: BASOPHILS % (AUTO) 0.6 % (0.0-2.0); EOSINOPHILS % (AUTO) 0.3 % (0.0-3.0); MEAN CORPUSCULAR HEMOGLOBIN 29.5 PG (27.0-31.0); MEAN CORPUSCULAR VOLUME 92 FL (80-99); MEAN PLATELET VOLUME 6.3 FL (6.5-10.1); MONOCYTES % (AUTO) 6.2 % (1.0-10.0); PLATELET COUNT 231 K/UL (150-450); RED BLOOD COUNT 4.21 M/UL (4.20-5.40); RED CELL DISTRIBUTION WIDTH 11.1 % (11.6-14.8); WHITE BLOOD COUNT 8.7 K/UL (4.8-10.8)
[2017-06-23 18:14] LABS: APPEARANCE,URINE SLIGHTLY CLOUDY; KETONES,URINE NEGATIVE (NEGATIVE); LEUKOCYTE ESTERASE ,URINE 1+ (NEGATIVE); NITRITE,URINE NEGATIVE (NEGATIVE); PH,URINE 6 (4.5-8.0); PROTEIN,URINE 1+ (NEGATIVE); UROBILINOGEN,URINE 8 MG/DL (0.0-1.0)
[2017-06-23 18:20] LABS: ICTOTEST POSITIVE
[2017-06-23 18:21] LABS: BACTERIA,URINE FEW /HPF; RBC,URINE 0-2 /HPF (0 - 2); SQUAMOUS EPITHELIAL CELL,UR MANY /LPF (NONE/OCC)
[2017-06-23 18:22] LABS: MUCUS,URINE MODERATE /LPF (NONE/OCC)
[2017-06-23 18:43] LABS: ALANINE AMINOTRANSFERASE 24 U/L (12-78); ALBUMIN/GLOBULIN RATIO 0.7 (1.0-2.7); ANION GAP 7 mmol/L (5-15); ASPARTATE AMINO TRANSFERASE 38 U/L (15-37); CALCIUM 8.9 MG/DL (8.5-10.1); CARBON DIOXIDE 28 MMOL/L (21-32); CHLORIDE 104 MMOL/L (98-107); CREATININE 0.6 MG/DL (0.55-1.30); GLOMERULAR FILTRATION RATE > 60 mL/min (>60); POTASSIUM 3.5 MMOL/L (3.5-5.1); SODIUM 139 MMOL/L (136-145); TOTAL PROTEIN 7.9 G/DL (6.4-8.2)
[2017-06-23 19:26] VITALS: BP 105/58
[2017-06-23] MEDS ORDERED: ZOFRAN ODT4 MG ORAL (20:23)
[2017-06-23 20:40] VITALS: BP 112/64
[2017-06-23 20:45] VITALS: BP 112/64
--- NOTE | 2017-06-24 08:54 | Diagnostic Imaging Report ---
Indication: PAIN, status post myomectomy and right ovarian cyst removal 3 weeks ago Technique: Present on transvaginal images Comparison: 04/23/2017 Findings: Uterus measures 6.4 cm length by 4.3 cm AP. There is a pedunculated mass in the right adnexal region which measures 5.2 x 3.2 cm. This demonstrates central heterogeneous low echoes. 2 other masslike lesions are seen in the right adnexa,, which measures 3.2 x 3.2 cm, predominantly hypoechoic with evidence of internal cystic change and hemorrhage. A third contiguous mass is seen in the same area, measures 4.1 x 3.8 cm. Indistinct ovary is not demonstrated. Left ovary is not demonstrated. Small amount free fluid is seen in the cul-de-sac. Impression: 3 contiguous right adnexal region masses in patient with known history of fibroids documented on multiple prior imaging studies, recent history of myomectomy and ovarian cystectomy. There is uncertain extent to which findings represent residual pedunculated fibroids, versus postoperative hematoma, versus ovarian pathology, versus combination of the above. CT may be useful to clarify and facilitate better comparison with preop studies. Free cul-de-sac fluid, possibly physiologic Nonvisualization of the left ovary. No gross adnexal mass inserted on left. This agrees with the preliminary interpretation provided [facility].
== END 2017-06-23 20:45 | disposition home or self-care (01) ==
LOC: EMR 17:48
DX: R10.2 Pelvic and perineal pain (principal); R19.00 Intra-abdominal and pelvic swelling, mass and lump, unspecified site; M32.9 Systemic lupus erythematosus, unspecified; J45.909 Unspecified asthma, uncomplicated; G51.0 Bell's palsy; G62.9 Polyneuropathy, unspecified; Z88.1 Allergy status to other antibiotic agents; Z88.6 Allergy status to analgesic agent; Z88.0 Allergy status to penicillin
CPT/HCPCS: 36415; 76830; 76856; 80053; 81003; 81025; 83690; 85025; 96374; 96375; 96376; 99284; J2270; J2405

== ENCOUNTER 2017-08-10 04:48 | Emergency (ER) | payer MEDICAID, MEDICARE ==
[~2017-08-10] VITALS: Ht 152.4 cm; Wt 52.2 kg
[~2017-08-10 04:48] MED LIST changes: +FOLIC ACID1 MG ORAL
[2017-08-10 05:12] VITALS: BP 109/69
[2017-08-10] MEDS ORDERED: Ketorolac 30mg Inj IV ONE (05:15)
--- NOTE | 2017-08-10 05:28 | Emergency Room Report ---
History of Present Illness General Chief Complaint: General Complaint Source: Patient Present Illness HPI 37-year-old female with 2-3 days of generalized body aches, headache, nausea and vomiting Associated with chills, no measurable fever at home History of lupus, did not get a flu shot this year no Sick contacts at home or work Allergies: Coded Allergies: AMOXICILLIN TRIHYDRATE (Verified Allergy, Severe, rash, 05/12/13) ASPIRIN (Verified Allergy, Severe, Shortness of Breath, 05/30/17) RASH PENICILLINS (Verified Allergy, Severe, Shortness of Breath, 05/30/17) Patient History Past Medical History: other - sle Past Surgical History: none Pertinent Family History: none Social History: Denies: smoking, alcohol use, drug use Last Menstrual Period: 2016 Now: No Immunizations: UTD Reviewed Nursing Documentation: PMH: Agreed, PSxH: Agreed Nursing Documentation-PMH Past Medical History: No History, Except For Hx Cardiac Problems: Yes - Pericarditis Hx Hypertension: No - Lupus, Pavon's palsy, Migraines Hx Asthma: Yes Hx Cancer: No Hx Gastrointestinal Problems: No History Of Psychiatric Problem: Yes - Anxiety, Depression Hx Cerebral Palsy: Yes - bells palsy Hx Peripheral Neuropathy: Yes Hx Weakness: Yes Hx Fatigue: Yes Hx Neurologic Surgery: No Hx Brain Shunt: No Review of Systems All Other Systems: negative except mentioned in HPI Physical Exam Vital Signs Date Time Temp Pulse Resp B/P (MAP) Pulse Ox O2 Delivery O2 Flow Rate FiO2 08/10/17 04:56 97.9 91 16 109/69 98 Room Air Sp02 EP Interpretation: reviewed, normal General Appearance: normal inspection, well appearing, no apparent distress, alert, GCS 15, non-toxic Head: atraumatic Eyes: bilateral eye PERRL, bilateral eye EOMI ENT: normal ENT inspection, hearing grossly normal, normal voice Neck: normal inspection, full range of motion, supple, no bony tend Respiratory: normal inspection, lungs clear, normal breath sounds, no respiratory distress, no retraction, no wheezing Cardiovascular #1: regular rate, rhythm, no edema Gastrointestinal: normal inspection, normal bowel sounds, non tender, soft, no guarding, no hernia Genitourinary: no CVA tenderness Musculoskeletal: normal inspection, back normal, normal range of motion, Bryan' s Sign negative Neurologic: normal inspection, alert, oriented x3, responsive, hardwood finisher III-XII nml as tested, speech normal Psychiatric: normal inspection, judgement/insight normal, mood/affect normal Skin: normal inspection, normal color, no rash Medical Decision Making Diagnostic Impression: Primary Impression: Weakness Additional Impression: Myalgia ER Course 2-3 days of generalized weakness, myalgias, headache likely viral in origin, possibly flu No sign of bacterial infection on exam Vital signs stable, afebrile. Not septic appearing Patient feels better after IV fluid, Zofran, Toradol ER course: Patient has remained stable during ED stay. Patient is to be discharged to home. Prescriptions given are tylenol Patient is instructed to follow up with their primary care doctor within 5 days. Strict return precautions discussed with patient such as fever, chills, worsening/severe pain, nausea, vomiting, which may indicate severe illness. Patient verbalizes understanding and agrees with plan. Please note that this Emergency Department Report was dictated using [employer] technology software, occasionally this can lead to erroneous entry secondary to interpretation by the dictation equipment Last Vital Signs Date Time Temp Pulse Resp B/P (MAP) Pulse Ox O2 Delivery O2 Flow Rate FiO2 08/10/17 04:56 97.9 91 16 109/69 98 Room Air Status: improved Disposition: HOME, SELF-CARE Scripts Ondansetron Odt* (ZOFRAN ODT*) 4 Mg Tab.rapdis 4 MG ORAL Q12HR Y for Nausea & Vomiting for 3 Days, #6 TAB 0 Refills Prov: HAILEY LOUISE M.D. 08/10/17 Acetaminophen (Tylenol) 325 Mg Tablet 650 MG ORAL Q6H Y for body aches for 7 Days, #30 TAB 0 Refills Prov: HAILEY LOUISE M.D. 08/10/17 HAILEY LOUISE M.D. Aug 10, 2017 05:28
[2017-08-10 05:43] LABS: BASOPHILS % (AUTO) 0.8 % (0.0-2.0); EOSINOPHILS % (AUTO) 1.4 % (0.0-3.0); LYMPHOCYTES % (AUTO) 37.3 % (20.0-45.0); MEAN CORPUSCULAR HEMOGLOBIN 29.3 PG (27.0-31.0); MEAN CORPUSCULAR HGB CONC 32.9 G/DL (32.0-36.0); MEAN CORPUSCULAR VOLUME 89 FL (80-99); MEAN PLATELET VOLUME 6.5 FL (6.5-10.1); MONOCYTES % (AUTO) 10.2 % (1.0-10.0); NEUTROPHILS % (AUTO) 50.3 % (45.0-75.0); PLATELET COUNT 253 K/UL (150-450); RED BLOOD COUNT 3.72 M/UL (4.20-5.40); RED CELL DISTRIBUTION WIDTH 12.2 % (11.6-14.8); WHITE BLOOD COUNT 3.9 K/UL (4.8-10.8)
[2017-08-10 05:47] LABS: APPEARANCE,URINE CLEAR; KETONES,URINE NEGATIVE (NEGATIVE); LEUKOCYTE ESTERASE ,URINE NEGATIVE (NEGATIVE); NITRITE,URINE NEGATIVE (NEGATIVE); PH,URINE 6 (4.5-8.0); PROTEIN,URINE NEGATIVE (NEGATIVE); UROBILINOGEN,URINE NORMAL MG/DL (0.0-1.0)
[2017-08-10 05:56] LABS: ANION GAP 8 mmol/L (5-15); CALCIUM 8.9 MG/DL (8.5-10.1); CARBON DIOXIDE 26 MMOL/L (21-32); CHLORIDE 108 MMOL/L (98-107); CREATININE 0.8 MG/DL (0.55-1.30); GLOMERULAR FILTRATION RATE > 60 mL/min (>60); POTASSIUM 3.6 MMOL/L (3.5-5.1); SODIUM 142 MMOL/L (136-145)
[2017-08-10] MEDS ORDERED: TYLENOL325 MG ORAL (05:58)
[2017-08-10] MEDS ORDERED: ZOFRAN ODT4 MG ORAL (05:58)
[2017-08-10 06:00] LABS: ALANINE AMINOTRANSFERASE 11 U/L (12-78); ALBUMIN/GLOBULIN RATIO 0.7 (1.0-2.7); ASPARTATE AMINO TRANSFERASE 13 U/L (15-37); TOTAL PROTEIN 8.2 G/DL (6.4-8.2)
[2017-08-10] MEDS ORDERED: LORazepam 0.5mg tab ORAL ONE (06:15)
[2017-08-10 06:40] VITALS: BP 113/74
== END 2017-08-10 06:40 | disposition home or self-care (01) ==
LOC: EMR 05:33
DX: R53.1 Weakness (principal); M79.1 Myalgia; J45.909 Unspecified asthma, uncomplicated; G51.0 Bell's palsy; M32.9 Systemic lupus erythematosus, unspecified; F41.9 Anxiety disorder, unspecified; F32.9 Major depressive disorder, single episode, unspecified
CPT/HCPCS: 36415; 80053; 81003; 81025; 85025; 96374; 96375; 99284; J1885; J2405